=== PATIENT | male | born 1985 | race Caucasian/White ===

== ENCOUNTER 2025-02-09 06:13 | Day surgery (SDC) | payer BC, SELFPAY ==
[2025-02-09] VITALS (12 sets, daily range): BP systolic 130–153; BP diastolic 72–94; PULSE 68–92; RESP 14–20; TEMP 36.6–37.1; O2SAT 97–99; BMI 33.5
[2025-02-09] MEDS: BUPIVACAINE 0.5 %/EPI 1:200K INJECTION (06:25)
[2025-02-09] MEDS: LIDOCAINE 1%-EPI 1:100,000 20 ML INFILTRATI (06:25)
--- NOTE | 2025-02-09 07:53 | P.ORPRC_ITS ---
Procedure Note Date of procedure: 02/09/25 Procedure: Preop diagnosis: Right upper extremity carpal tunnel syndrome Postop diagnosis: Right upper extremity carpal tunnel syndrome Procedure: Right upper extremity carpal tunnel release Anesthesia: Local Surgeon: Stephan Mijares MD academic support assistant: EMMANUELLE Holloway EBL: 2 mL Complications: None Specimens: None Drains: None Indications: The patient has a history of right upper extremity carpal tunnel syndrome sympto ms. Despite appropriate nonoperative management consisting of nighttime bracing and occupational therapy they continue to have symptoms. Operative intervention was recommended. The risks, benefits alternatives and expected outcomes were discussed in detail. These included but were not limited to: Infection, bleeding, injury to blood vessel or nerve, venous thromboembolism. All questions were answered to their satisfaction. The patient was placed supine on the operating room table. Local anesthesia was established with 0.5% Marcaine with epinephrine and 2% lidocaine with epinephrine. The hand was prepped and draped in usual sterile fashion. A longitudinal incision was made centered over the radial border of the ring finger at the base of the palm. Subcutaneous dissection was sharply taken through the palmar fascia and the palmaris brevis to the transverse carpal ligament. The ligament was divided in line with the incision. Proximal and distal dissection was carried with tenotomy and Metzenbaum scissors for a wide decompression of the carpal tunnel. The wound was closed with a 3-0 nylon. A bulky dry dressing was applied, sponge and needle counts were correct x 2. The patient tolerated the procedure well, there were no apparent complications. They were sent to same day surgery in satisfactory condition. Plan: Use of the hand as tolerates. Discontinue the intraoperative dressing on postoperative day 3 and may get the wound wet as tolerates. Follow up in the office in 2 weeks for a wound check and suture removal.
== END 2025-02-09 08:22 | disposition home or self-care (01) ==
PROVIDERS: PCP Family Medicine; Visit Provider Orthopaedic Surgery
PROC: (CPT 64721; principal; 2025-02-09 07:15)
DX: G56.01 Carpal tunnel syndrome, right upper limb (principal)
CPT/HCPCS: 64721; J3490

== ENCOUNTER 2025-04-10 15:19 | Emergency (ER) | payer BC, SELFPAY ==
[2025-04-10 15:25] VITALS: BP 165/106; PULSE 100; RESP 20; TEMP 36.6; O2SAT 97; BMI 34.4
--- OUTSIDE RECORDS SUMMARY | 2025-04-10 15:35 | XMS_ITS | Clinical Summary ---
Author Organization [facility] Address [address] , [address] [place] [address] Phone Care Team Providers Care Studio Technician Video Operator Name Role Phone MedRec, MedRec Unavailable Conditions or Problems Problem Name Problem Code Onset Date Status Entry Date Provider Comment Standard Description Annotate Hand numbness [id number] (SNOMED CT) Active Everton Hionjosa MD Numbness of hand Median neuropathy, right [id number] (SNOMED CT) Active Everton Hinojosa MD Median neuropathy Medications No information available. Medications Administered No information available. Allergies, Adverse Reactions, Alerts No information available. Results Date Name Value Unit Range Flag Description Internal Other: Verbal Autho rization/Emergency Contact VERBAL_EMER Done Verbal au thorization and emergency contact Internal Other: Authorizatio n AUTHBENEFIT Yes Authoriza tion: Assignment of Benefits and Payment Agreement [email or web address] Yes Authorizat ion: Authorization for [facility] to leave messages, voicemail, send text messages, send emails AUTHRELHCARE Yes Authoriz ation: Release/Retrieval of Information to/from Healthcare Facilities, Pharmacy Benefit Payers and Providers ROIAUTHOTHER Yes Authoriz ation: Release of Information - Authorize Others/Insurance - Payment and Healthcare Operations [email or web address] Yes Authoriza tion: Release of Information - Authorize [facility] - Payment and Healthcare Operations AUTHPRIVPRAC Yes Authoriz ation: Notice of privacy practices HIECONSENT Yes Consent To Release information to the Health Information Exchange (HIE) Plan of Care No information available. Procedures Code Procedure Name Date Entry Date CPT-72925 Nerve Conduction 7-8 studies CPT-75015 EMG with NCS (5+ muscles) - 1 limb 12/29 Vital Signs No information available. Immunizations No information available. Advance Directives No information available.
--- OUTSIDE RECORDS SUMMARY | 2025-04-10 15:35 | XMS_ITS | Clinical Summary ---
Author Organization [facility] Address [address] [place] [id number] Care Team Providers Care Linen Controller Name Role Phone Alvarez Weinstein MD Primary Care Provider Allergies No known active allergies Medications famotidine (PEPCID) 20 mg tabletIndications: Chronic GERD Take 1 Tablet (20 mg) by mouth two times daily. 60 Tablet 12 06/17/2023 12:12 PM CDT 3 Active amLODIPine 10 mg tabletIndications: Benign essential HTN Take 1 Tablet (10 mg) by mouth once daily. 90 Tablet 3 04/07/2025 3:38 PM CDT 4 Active atorvastatin 20 mg tabletIndications: Hyperlipidemia, unspecified hyperlipidemia type Take 1 Tablet (20 mg) by mouth at bedtime. 90 Tablet 3 02/07/2025 9:19 AM CDT 4 Active lisinopril-hydroch lorothiazide (20-25 mg) 20-25 mg per tabletIndications: Benign essential HTN Take 1 Tablet by mouth once daily. 90 Tablet 3 02/07/2025 9:19 AM CDT 4 Active albuterol HFA (ProAir HFA) 90 mcg/actuation inhalerIndications :Influenza-like illness Inhale 1-2 Puffs by mouth every 6 hours if needed for Shortness of Breath 1st choice. 1 Each 4 Active Active Problems Problem Noted Date Diagnosed Date Chronic GERD 05/25/2023 Dyslipidemia 04/23/2022 Overview (04/23/2022): high triglycerides Overweight 01/31/2016 Benign essential HTN 12/20/2015 Impaired fasting glucose 02/01/2015 Resolved Problems Problem Noted Date Diagnosed Date Resolved Date Myopia of both eyes 11/18/2016 02/07/20 17 Diarrhea 02/20/2012 01/31/2016 Overview (02/20/2012): Colonoscopy 02/2012 normal Gastroesophageal reflux 01/11 Immunizations Immunization Administration Dates Next Due DTaP 05/25/1987, 6,1985,1984 HIB HbOC (HibTITER) 05/25/1989 Hepatitis B (Peds) 04/10/2000,09/06/1999, 999 MMR 05/31/1997,08/09/1986 Oral Polio Vaccine 05/25/1987,1985, 985 Td (Age >=7 Years) 11/30/1996,11/12/1996 Td, Preservative Free (age > = 7 Years) 03/04/2019 Tdap 09/04/2010 Family History Medical History Relation Name Comments Good Health Brother 2 Good Health Daughter 2 Other Father Ulcers Hypertension Maternal Grandfather Good Health Mother cholecystectomy Cancer-colon Paternal Aunt 1 dx at age 35 GI Disease Paternal Aunt 2 crohns Good Health Sister 2 Relation Name Status Comments Brother 1 Alive Brother 2 Daughter 1 Alive Daughter 2 Father Alive Maternal Grandfather Mother Alive Paternal Aunt 1 Paternal Aunt 2 Sister 1 Alive Sister 2 Social History Tobacco Use Types Packs/Day Years Used Date Smoking Tobacco: Never Smokeless Tobacco: Never Tobacco Cessation:Counseling Given: No Alcohol Use Standard Drinks/Week Comments Yes 0 (1 standard drink = 0.6 oz pur e alcohol) 2 drinks a night PHQ-2 Answer Date Recorded PHQ-2 TOTAL SCORE 0 05/12/2024 Social Connections Answer Date Recorded Do you often feel lonely or isolated from those around you? 0 05/12/2024 Financial Resource Strain Answer Date R ecorded Difficulty of Paying Living Expenses 3 05/12/2024 Difficulty of Paying Living Expenses Not on file 05/12/2024 Food Insecurity Answer Date Recorded Do you worry your food will run out before you are able to buy more? 1 05/12/2024 Transportation Needs Answer Date Record ed Does lack of transportation keep you from medica l appointments? 1 05/12/2024 Does lack of transportation keep you from work, meetings or getting things that you need? 1 05/12/2024 Housing Stability Answer Date Recorded What is your housing situation today? 1 05/12/2024 Utilities Answer Date Recorded Do you have trouble paying f or utilities (for example, heat, electricity, water, phone)? 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 Not on file Not on file Not on file Obstetrics History Last Filed Vital Signs Vital Sign Reading Time Taken Comments Blood Pressure 141/91 12/22/2024 7:44 AM CDT Pulse 85 12/22/2024 7:44 AM CDT Temperature 36.8 C (98.2 F) 10/11/2024 7:02 AM STUDENT RECORDS SPECIALIST Respiratory Rate 16 01/08/2017 10:05 AM CDT Oxygen Saturation 98% 12/22/2024 7:44 AM CDT Inhaled Oxygen Concentration - - Weight 110.7 kg (244 lb) 12/22/2024 7:44 AM CDT Height 176.6 cm (5' 9.53) 05/12/2024 10:19 AM C DT Body Mass Index 35.49 05/12/2024 10:19 AM CDT Plan of Treatment Upcoming Encounters Date Type Department Care Team (Late st Contact Info) Description 04/12/2025 12:45 PM CDT Office Visit [facility] [address] [place] [address] Sameera Trotter DO [address] [place] [address] 05/23/2025 8:50 AM CDT Office Visit [facility] [address] [place] [address] Alvarez Weinstein MD [address] [place] [address] Health Maintenance Due Date Last Done Comments COVID-19 vaccine series (2023- season) 2024 BMI (ht and wt on same day) for age 18+ 05/12/2025 05/12/2024, 05/25/2023, 11/10/2022, Additional history exists Depression screening for age 12+ 05/12/2025 05/12/2024 Influenza Vaccine (Season Ended) 2025 Tetanus booster 03/04/2029 03/04/2019, 08/13, 11/30/1996, Additional history exists Lipids for age 35-44 05/12/2029 05/12/2024, 05/25/2023, 04/23/2022, Additional history exists Hepatitis B series for 19+ Completed 04/10, 09/06/1999, 05/24/1999 Tdap Completed 09/04/2010 Hepatitis C screening for age 18-79 Completed 04/23/2022 HIV for age 15-65 Completed 05/25/2023 Pneumococcal series for age 6-49 Aged Out No longer eligible based on patient's age to complete this topic Procedures Procedure Name Priority Date/Time Associated Diagnosis Comments LIPID PANEL W REFLEX MEASURED LDL Routine 05/12/2024 11:00 AM CDT Hyperlipidemia, unspecified hyperlipidemia type LC HIV-1/O/2, 4TH GENERATION Routine 05/25/2023 11:12 AM CDT Screening for HIV (human immunodeficiency virus) ANTI HCV Routine 04/23/2022 8:28 AM CDT Need for hepatitis C screening test from Last 3 Months or Most Recently Relevant to Health Maintenance Results * LIPID PANEL W REFLEX MEASURED LDL (05/12/2024 11:00 AM CDT) CHOLESTEROL,TOTAL 154 100 - 199 mg/dL 05/13/2024 4:44 AM CDT [facility] Comment: Cholesterol, Total Reference Ranges Desirable <200 mg/dL Borderline 200-239 mg/dL High >=240 mg/dL TRIGLYCERIDES 149 <150 mg/dL 05/13/2024 4:44 AM CDT [facility] HDL CHOLESTEROL 45 >40 mg/dL 4:44 AM CDT [facility] NON-HDL CHOLESTEROL 109 <145 mg/dl 05/13/2024 4:44 AM CDT [facility] CHOL/HDL RATIO 3.42 <4.50 05/13/2024 4:44 AM CDT [facility] LDL CHOLESTEROL 79 <=130 mg/dL 05/13/2024 4:44 AM CDT [facility] VLDL CHOLESTEROL 30 <=30 mg/dL 05/13/2024 4:44 AM CDT [facility] PROVIDER ORDERED STATUS RANDOM 05/13/2024 4:44 AM CDT [facility] Blood BLOOD SPECIMEN / Unknown Venipuncture / Unknown 05/12/2024 11:00 AM CDT 05/12/2024 11:00 AM CDT Alvarez Weinstein MD CHEMISTRY Final Result [facility] [address] [place] [address], * HIV-1/O/2, 4TH GENERATION (05/25/2023 11:12 AM CDT) Pathologist [facility] HIV Scr 4th Gen Non Reactive Non Reactive 05/27/2023 11:10 AM T [facility] ([facility] Comment: HIV Negative HIV-1/HIV-2 antibodies and HIV-1 p24 antigen were NOT detected. There is no laboratory evidence of HIV infection. Blood BLOOD SPECIMEN / Unknown Venipuncture / Unknown 05/25/2023 11:12 AM CDT 05/25/2023 11:14 AM CDT Narrative [facility] ([facility] - 05/27/2023 11:10 AM CDT Performed at: [address] [place] [id number] Operator Automated Process: Jamie Avendano MD, Phone: [phone] us Alvarez Weinstein MD LABORATORY Final Result [facility] ([facility]) [facility] [place] [address], * ANTI HCV (04/23/2022 8:28 AM CDT) HEPATITIS C ANTIBODY Non-React keshav Non-React keshav 04/23/2022 6:54 PM CDT [facility] Comment:Antibodies to HCV no t detected; does not exclude the possibility of exposure to HCV. Blood BLOOD SPECIMEN / Unknown Venipuncture / Unknown 04/23/2022 8:28 AM CDT 04/23/2022 9:04 AM CDT us Alvarez Weinstein MD SEND OUTS Final Result [facility] [address] [place] [address], from Last 3 Months or Most Recently Relevant to Health Maintenance Insurance [employer] [place] [address] [facility] INSURANCE DEPT [address] [place] [id number] Advance Directives Documents on File Type Date Recorded Patient Head Bone Grinder Expl anation Healthcare Directive 01/26/2013 8:46 AM AM Whitney WILLIS, 11/06/2012 * Full Code (Latest Code Status on File) Date Activated Date Inactivated Comments 01/08/2017 10:00 AM 01/09/2017 2:35 AM Care Teams Linen Controller Relationship Specialty Start Date End Date Alvarez Weinstein MD [address] [place] [address] PCP - General Family Practice 02/01/15
--- NOTE | 2025-04-10 15:47 | CRLHL7_ITS ---
For Patients: As a result of the Century Cures Act, medical imaging exams and procedure reports are released immediately into your electronic medical record. You may view this report before your referring provider. If you have questions, please contact your health care provider. INDICATION: UPPER EPIGASTRIC PAIN, RED BLOOD IN STOOL TECHNIQUE: CT of the abdomen and pelvis was obtained with 118 mL of Isovue 370 intravenous contrast. Please note that all CT scans at this facility use dose modulation, iterative reconstruction, and/or weight-based dosing when appropriate to reduce radiation dose to as low as reasonably achievable. COMPARISON: 06/17/2012. FINDINGS: Lower thorax: Normal. Liver and biliary tree: Mild hepatic steatosis. Enlarged, measuring 21.3 centimeter (4/76). Gallbladder: Normal. Spleen: Moderately enlarged, measuring 15.1 centimeter (2/48). Pancreas: Mild fatty atrophy. Adrenal glands: Normal. Kidneys and ureters: No hydronephrosis or obstructing renal calculi. Gastrointestinal tract: Small to moderate stool burden. Status post appendectomy. No evidence of bowel obstruction. Peritoneal cavity: Normal. Bladder: Normal. Pelvic organs: Normal. Vasculature: Normal. Lymph nodes: Normal. Abdominal wall: Normal. Musculoskeletal: Normal. IMPRESSION: 1. Mild hepatic steatosis and hepatomegaly, which may represent steatohepatitis. 2. Moderate splenomegaly, which may represent portal hypertension. 3. Small to moderate stool burden. Please note that all CT scans at this facility use dose modulation, iterative reconstruction, and/or weight-based dosing when appropriate to reduce radiation dose to as low as reasonably achievable. Dictated by Mando Arango MD @ 04/10/2025 5:34:56 PM (Electronically Signed)
--- NOTE | 2025-04-10 15:50 | ED.ABDPAIN ---
HPI - Abdominal Pain General Chief Complaint: Abdominal Pain Stated Complaint: Stomach nausea, pain tight chest Time Seen by Provider: 04/10/25 15:31 History of Present Illness HPI narrative: This 39-year-old male comes in reporting abdominal pain with some dry heaves and very small amount of bright red blood in the vomit. He has also had some wanda bloody stools recently. He does not report any fevers. He states that he has had recurrent symptoms like this at various times in the past. He has had colonoscopies and had workups done which have ruled out important causes of these symptoms but no direct answer as to why this is occurring with him. Related Data Home Medications ?Medication ?Instructions ?Recorded ?Confirmed amlodipine 10 mg tablet 10 mg PO DAILY 07/11/24 02/22/25 atorvastatin 20 mg tablet 20 mg PO DAILY 07/11/24 02/22/25 lisinopril 20 1 tab PO DAILY 07/11/24 02/22/25 mg-hydrochlorothiazide 25 mg tablet famotidine 20 mg tablet (Pepcid) 20 mg PO QDAY 07/12/24 02/22/25 Allergies Allergy/AdvReac Type Severity Reaction Status Date / Time No Known Drug Allergies Allergy Verified 02/22/25 08:38 Review of Systems Status of ROS Reports: 10 or more systems reviewed and unremarkable except as noted in History and below Narrative Constitutional: No fevers, no weight gain or loss. Eyes: No discharge. No vision changes. HENT: No congestion, no sore throat, no ear pain. Cardiovascular: No chest pain, no palpitations. Respiratory: No shortness of breath, no wheezes, no cough. Gastrointestinal: Abdominal pain with dry heaves. Blood in the toilet. Genitourinary: No dysuria, no hematuria. Musculoskeletal: Normal range of motion. Skin: No rashes, no pruritis. Neurological: No dizziness, weakness, sensory change, speech change. Endo/Heme/Allergies: No bruising or bleeding. No polydipsia. Pysch: no suicidality, no anxiety, no insomnia. All other systems reviewed and are negative. [facility] Medical History (Updated 04/10/25 @ 16:43 by Joe Mtz MD) Dyslipidemia ?E78.5 - Hyperlipidemia, unspecified (ICD-10) GERD (gastroesophageal reflux disease) ?K21.9 - Gastro-esophageal reflux disease without esophagitis (ICD-10) Surgical History (Updated 02/10/25 @ 12:38 by Edna Padilla) History of carpal tunnel surgery of right wrist (02/09/25) ?Z98.890 - Other specified postprocedural states (ICD-10) S/P LASIK surgery of both eyes (12/2016) ?Z98.890 - Other specified postprocedural states (ICD-10) History of appendectomy (06/17/12) ?Z90.49 - Acquired absence of other specified parts of digestive tract (ICD-10) Social History (Updated 07/12/24 @ 08:13 by Kirti Thornton ~ [facility], [facility]) Smoking Status: Never smoker Exam Narrative: Exam Narrative: Constitutional: Well-developed, well-nourished, no acute distress. HEENT: Normocephalic, atraumatic. Neck: Normal range of motion. Nontender. Supple. Heart: Regular. No murmurs. Normal rate. Intact distal pulses. Lungs: Clear to auscultation. No chest discomfort. No wheezes, rhonchi, or rales. Abdomen: Normal bowel sounds. Mild tenderness in the upper epigastric region. No rebound tenderness. Genitalia: Deferred. Back: No midline tenderness. Normal range of motion. Extremities: Normal range of motion. No injury. Skin: Intact. No rash. Warm. No erythema or pallor. Neurologic: No altered sensation. No weakness. Alert and oriented. Psychiatric: No suicidality. No anxiety or depression. No insomnia. Nursing notes and vitals signs are reviewed. Const: Vital Signs, click to edit/add: Vital Signs - 24 hr 04/10/25 15:25 Temperature 97.9 F Pulse Rate [Pulse Oximeter] 100 Respiratory Rate 20 Blood Pressure [Ri ght Upper Arm] 165/106 H Pulse Oximetry 97 Oxygen Delivery Me thod Room Air Course Vital Signs Vital signs: Initial Vital Signs Temperature 97.9 F 04/10/25 15:25 Temperature Source Temporal Artery Scan 04/10/25 15:25 Pulse Rate 100 04/10/25 15:25 Pulse Rhythm Regular 04/10/25 15:25 Respiratory Rate 20 04/10/25 15:25 Blood Pressure 165/106 H 04/10/25 15:25 Blood Pressure Mean 125 H 04/10/25 15:25 Blood Pressure Position Sitting 04/10/25 15:25 Pulse Oximetry 97 04/10/25 15:25 Oxygen Delivery Method Room Air 04/10/25 15:25 Vital Signs Temperature 97.9 F 04/10/25 15:25 Pulse Rate 100 04/10/25 15:25 Respiratory Rate 20 04/10/25 15:25 Blood Pressure 165/106 H 04/10/25 15:25 Pulse Oximetry 97 04/10/25 15:25 Oxygen Delivery Method Room Air 04/10/25 15:25 Temperature 97.9 F 04/10/25 15:25 Pulse Rate 100 04/10/25 15:25 Respiratory Rate 20 04/10/25 15:25 Blood Pressure 165/106 H 04/10/25 15:25 Pulse Oximetry 97 04/10/25 15:25 Oxygen Delivery Method Room Air 04/10/25 15:25 MDM - Abdominal Pain MDM Narrative Medical decision making narrative: This patient comes in reporting upper epigastric abdominal pain with some dry heaves and bright red blood in the toilet. He has been having symptoms like this on and off but more pronounced and consistent recently. He arrives here with normal vital signs. An IV was established where he did receive 500 mL of normal saline. Labs are acquired also along with CT imaging. Labs returned with reassuring findings but his acute phase reactants are not yet resulted. CT imaging has not yet also been completed at the end of my shift so care for this patient is transferred to the oncoming ER physician. Lab Data Labs: Lab Results 04/10/25 Range/Units 15:55 WBC 6.38 (4.50-11.00) K/uL RBC 4.80 (4.30-5.90) m/uL Hgb 14.9 (13.5-17.5) gm/dL Hct 43.6 (37.0-53.0) % MCV 91 (80-100) fL MCH 31 (26-34) pg MCHC 34 (32-36) gm/dL RDW Coeff of Fifi 12.4 (11.5-15.5) % Plt Count 158 (140-440) K/uL Neut % (Auto) 69.5 (42.0-72.0) % Lymph % (Auto) 17.2 L (20-44) % [place] % (Auto) 11.6 H (0.0-11.0) % Eos % (Auto) 0.9 (0.0-7.0) % Baso % (Auto) 0.5 (0.0-3.0) % Neut # (Auto) 4.43 (1.7-7.0) K/uL Lymph # (Auto) 1.10 (0.90-2.90) K/uL [place] # (Auto) 0.70 (0.00-0.90) K/UL Eos # (Auto) 0.06 (0.00-0.50) K/uL Baso # (Auto) 0.03 (0.00-0.30) K/uL Abs Immat Gran (auto) 0.02 (0.00-0.30) K/uL Imm/Tot Granulo (auto) 0.3 % Sodium 138 (135-149) mmol/L Potassium 3.5 L (3.6-5.1) mmol/L Chloride 101 (96-114) mmol/L Carbon Dioxide 25 (20-32) mmol/L Anion Gap 12 (7-15) mEq/L BUN 16 (5-24) mg/dL Creatinine 0.8 (0.5-1.5) mg/dL Estimated Creat Clear 128.00 Estimated GFR 115 ml/min Glucose 120 H (60-115) mg/dL Calcium 10.1 (8.4-10.6) mg/dL Lipase 134 (23-300) U/L ECG Data Attestation: I personally reviewed and interpreted this ECG as follows: Interpretation: Normal sinus rhythm. Rate is 94 beats per minute. There are no ST or T-wave abnormalities. Discharge Plan Discharge Clinical Impression: Abdominal pain Prescriptions: No Action amlodipine 10 mg tablet 10 mg PO DAILY lisinopril-hydrochlorothiazide 20-25 mg tablet 1 tab PO DAILY atorvastatin 20 mg tablet 20 mg PO DAILY famotidine [Pepcid] 20 mg tablet 20 mg PO QDAY Follow Up/Referrals: Alvarez Weinstein MD [Primary Care Provider, Family Practice]
--- OUTSIDE RECORDS SUMMARY | 2025-04-10 15:53 | XMS_ITS | Clinical Summary ---
Author Organization [facility] Address [address] , [address] [place] [address] Phone Care Team Providers Care Client Business Manager Name Role Phone MedRec, MedRec Unavailable Conditions or Problems Problem Name Problem Code Onset Date Status Entry Date Provider Comment Standard Description Annotate Hand numbness 976831321 (SNOMED CT) Active Everton Hinojosa MD Numbness of hand Median neuropathy, right 624007957 (SNOMED CT) Active Everton Hinojosa MD Median [...] Procedures Code Procedure Name Date Entry Date CPT-57883 Nerve Conduction 7-8 studies CPT-20117 EMG with NCS (5+ muscles) - 1 limb 12/29 Vital Signs No information available. Immunizations No information available. Advance Directives No information available.
[2025-04-10 16:07] LABS: Basophils Absolute Auto 0.03 K/uL (0.00-0.30); Basophils Percent Auto 0.5 % (0.0-3.0); Eosinophils Absolute Auto 0.06 K/uL (0.00-0.50); Eosinophils Percent Auto 0.9 % (0.0-7.0); Hematocrit 43.6 % (37.0-53.0); Hemoglobin* 14.9 gm/dL (13.5-17.5); Immature Granulocytes Abs Auto 0.02 K/uL (0.00-0.30); Immature Granulocytes Pct Auto 0.3 %; Lymphocytes Percent Auto 17.2 % (20-44); Mean Corpuscular HGB Conc 34 gm/dL (32-36); Mean Corpuscular Hemoglobin 31 pg (26-34); Mean Corpuscular Volume 91 fL (80-100); Monocytes Percent Auto 11.6 % (0.0-11.0); Neutrophils Absolute Auto 4.43 K/uL (1.7-7.0); Neutrophils Percent Auto 69.5 % (42.0-72.0); Platelet Count* 158 K/uL (140-440); RDW Coefficient of Variation % 12.4 % (11.5-15.5); White Blood Count* 6.38 K/uL (4.50-11.00)
[2025-04-10 16:14] LABS: Slide Review Reflex No
[2025-04-10 16:26] LABS: Chloride* 101 mmol/L (96-114); Potassium* 3.5 mmol/L (3.6-5.1); Sodium* 138 mmol/L (135-149)
[2025-04-10 16:29] LABS: Anion Gap 12 mEq/L (7-15); Blood Urea Nitrogen* 16 mg/dL (5-24); Calcium* 10.1 mg/dL (8.4-10.6); Carbon Dioxide* 25 mmol/L (20-32); Creatinine* 0.8 mg/dL (0.5-1.5); Estimated Glomerular Filt Rate 115 ml/min; Glucose* 120 mg/dL (60-115); Lipase* 134 U/L (23-300)
[2025-04-10 16:46] VITALS: BP 163/97; PULSE 87; RESP 18
[2025-04-10] MEDS: 0.9 % SODIUM CHLORIDE 500 ML 500 ML IV (16:46)
[2025-04-10 16:54] LABS: C Reactive Protein* < 0.5 mg/dL (0.5-1.0)
[2025-04-10 17:58] LABS: Erythrocyte SedimentationRate* 2 mm/hr (2-15)
[2025-04-10 18:47] LABS: Albumin* 4.8 g/dL (3.3-5.0)
[2025-04-10 18:50] LABS: Alanine Aminotransferase* 224 U/L (4-50); Alkaline Phosphatase* 104 U/L (40-150); Aspartate Amino Transferase* 142 U/L (12-35); Bilirubin Direct* 0.4 mg/dL (0.0-0.5); Bilirubin Total* 0.9 mg/dL (0.1-1.5); Total Protein* 7.6 g/dL (6.0-8.3)
[2025-04-10 19:21] VITALS: BP 139/74
== END 2025-04-10 19:22 | disposition home or self-care (01) ==
PROVIDERS: Emergency Medicine Emergency Medical Services; Emergency Provider Emergency Medicine; PCP Family Medicine
DX: R10.13 Epigastric pain (principal); R11.0 Nausea
CPT/HCPCS: 36415; 74177; 80048; 80076; 83690; 85025; 85651; 86140; 93005; 99284; 99285; J7030; Q9967

== ENCOUNTER 2025-05-01 11:19 | Outpatient (CLI) | payer BC, SELFPAY ==
--- NOTE | 2025-05-01 12:15 | P.ANES_ITS ---
Anesthesia Charges Start Date/Time Anesthesia Start Date: 05/01/25 Anesthesia Start Time: 11:57 Stop Date/Time Anesthesia Stop Date: 05/01/25 Anesthesia Stop Time: 12:16 Coding CPT Codes CPT Codes: ANES UPR GI NDSC PX NOS - 39179 ([id number]) P2 - PATIENT W/MILD SYST DISEASE, QK - LOCKMAKER 2-4 CNCRNT ANES PROC, QX - IT OPERATIONS SPECIALIST SVC W/ MD MED DIRECTION
--- NOTE | 2025-05-01 12:15 | W.ANESCHARGE ---
Anesthesia Charges Start Date/Time Anesthesia Start Date: 05/01/25 Anesthesia Start Time: 11:57 Stop Date/Time Anesthesia Stop Date: 05/01/25 Anesthesia Stop Time: 12:16 Coding CPT Codes CPT Codes: ANES UPR GI NDSC PX NOS - 35220 ([id number]) P2 - PATIENT W/MILD SYST DISEASE, QK - PUBLIC HEALTH EPIDEMIOLOGIST 2-4 CNCRNT ANES PROC, QX - DAY TRADER SVC W/ MD MED DIRECTION
--- NOTE | 2025-05-01 12:17 | P.ANES_ITS ---
Anesthesia Charges Start Date/Time Anesthesia Start Date: 05/01/25 Anesthesia Start Time: 11:57 Stop Date/Time Anesthesia Stop Date: 05/01/25 Anesthesia Stop Time: 12:16 Coding CPT Codes CPT Codes: ANES UPR GI NDSC PX NOS - 04711 ([id number]) QK - HOUSING LIAISON 2-4 CNCRNT ANES PROC, QX - FIELD SALES SPECIALIST SVC W/ MD MED DIRECTION, P2 - PATIENT W/MILD SYST DISEASE
--- NOTE | 2025-05-01 12:17 | W.ANESCHARGE ---
Anesthesia Charges Start Date/Time Anesthesia Start Date: 05/01/25 Anesthesia Start Time: 11:57 Stop Date/Time Anesthesia Stop Date: 05/01/25 Anesthesia Stop Time: 12:16 Coding CPT Codes CPT Codes: ANES UPR GI NDSC PX NOS - 63263 ([id number]) QK - HIGHWAY MAINTENANCE SUPERVISOR 2-4 CNCRNT ANES PROC, QX - PHOTOGRAPHY COLORIST SVC W/ MD MED DIRECTION, P2 - PATIENT W/MILD SYST DISEASE
== END 2025-05-01 11:20 | disposition home or self-care (01) ==
LOC: OP CLINIC 11:20
PROVIDERS: PCP Family Medicine; Visit Provider Surgery
DX: K21.9 Gastro-esophageal reflux disease without esophagitis (principal); K44.9 Diaphragmatic hernia without obstruction or gangrene; K31.89 Other diseases of stomach and duodenum; J39.2 Other diseases of pharynx
CPT/HCPCS: 00731; 43239; 88305; J2704; J3490

== ENCOUNTER 2025-09-13 07:55 | Outpatient (CLI) | payer BC, SELFPAY ==
--- NOTE | 2025-09-13 08:15 | CRLHL7_ITS ---
For Patients: As a result of the Century Cures Act, medical imaging exams and procedure reports are released immediately into your electronic medical record. You may view this report before your referring provider. If you have questions, please contact your health care provider. Indication: Superior glenoid labrum lesion of left shoulder Comparison: 08/30/2025 Procedure : Informed consent was obtained. The site was marked. Time-out was performed. The skin of the left shoulder was cleansed with ChloraPrep. A sterile drape was placed. 8 cc of 1 percent lidocaine was administered for superficial anesthesia. Subsequently a 22 gauge spinal needle was introduced into the left shoulder joint under intermittent fluoroscopic guidance. Injection of 2 cc nonionic Omnipaque 240 contrast confirmed intra-articular location. Subsequently 11 cc of dilute gadolinium were injected. The needle was removed and hemostasis achieved with direct pressure. A dressing was placed. The patient tolerated the procedure well without immediate complication and was immediately sent to MRI for imaging. Total fluoroscopy time 24 seconds. Impression: Successful fluoroscopically guided left shoulder arthrogram for MRI. Dictated by Vitor Srivastava MD @ 09/13/2025 9:22:50 AM (Electronically Signed)
--- NOTE | 2025-09-13 09:15 | MR_ITS ---
EXAM: MR ARTHROGRAM of the LEFT SHOULDER CLINICAL HISTORY: Ongoing left shoulder pain. Superior glenoid labrum lesion of left shoulder. Evaluate for labral tear. COMPARISONS: Plain radiographs 08/30/2025. TECHNICAL: Exam performed after fluoroscopically-guided gadolinium arthrography of the glenohumeral joint of the left shoulder, reported separately. MRI sequences of the left shoulder: coronal obliques: PD, PD FS, T1FS sagittal obliques: PDFS, T2 axials: PD, PDFS FINDINGS: Bones: Mildly displaced intra-articular glenoid fracture from the 11:00 position posterosuperiorly through 7:00 position posteroinferiorly. Coracoacromial arch: Acromion: No os acromiale. Type I-II acromion. Acromiohumeral space: The bony distance is unremarkable. Coracohumeral space: The bony distance is unremarkable. Acromioclavicular joint: Moderate to marked osteoarthritis. Coracoclavicular ligament: The coracoclavicular ligament is intact. Rotator cuff and muscles/tendons: Supraspinatus: The supraspinatus tendon and muscle are intact. Infraspinatus: The infraspinatus tendon and muscle are intact. Teres minor: The teres minor tendon and muscle are intact. Subscapularis: The subscapularis tendon and muscle are intact. Labrum: Labral tear from the 11:00 o'clock position posterosuperiorly through 6:00 o'clock position inferiorly and from the 5:00 position anteroinferiorly through 6:00 o'clock position inferiorly. Additionally, fraying/ill-defined tearing of the labrum from the 12:00 o'clock position through 11:00 o'clock position posterosuperiorly. Proximal biceps tendon, long head and short heads: The long and short heads of the proximal biceps tendon are intact. Glenohumeral joint: Intra-articular contrast is present secondary to arthrogram injection. No discrete chondral defect or subchondral bone marrow edema/subchondral cystic change is seen. No convincing evidence of capsular edema or thickening. Bursae: Subacromial-subdeltoid: No convincing subacromial bursal thickening/bursitis. Subcoracoid: No convincing subcoracoid bursal thickening/bursitis. IMPRESSION: 1. Mildly displaced intra-articular glenoid fracture from the 11:00 position posterosuperiorly through 7:00 position posteroinferiorly. 2. Labral tear from the 11:00 o'clock position posterosuperiorly through 6:00 o'clock position inferiorly and from the 5:00 o'clock position anteroinferiorly through 6:00 o'clock position inferiorly. Additionally, fraying/ill-defined tearing of the labrum from the 12:00 o'clock position through 11:00 o'clock position posterosuperiorly. 3. 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 4. No rotator cuff tendon pathology, rotator cuff muscular atrophy, or biceps pathology of the left shoulder. RCB Electronically signed on 09/13/2025 11:53:00 AM by Christopher Conn M.D.
== END 2025-09-13 07:56 | disposition home or self-care (01) ==
LOC: RAD 07:55
PROVIDERS: PCP Family Medicine; Visit Provider Orthopaedic Surgery
DX: M25.512 Pain in left shoulder (principal); S42.142A Displaced fracture of glenoid cavity of scapula, left shoulder, initial encounter for closed fracture; S43.432A Superior glenoid labrum lesion of left shoulder, initial encounter; M19.012 Primary osteoarthritis, left shoulder; S49.92XA Unspecified injury of left shoulder and upper arm, initial encounter
CPT/HCPCS: 23350; 73222; 77002; A9575; Q9966